=== PATIENT | female | born 1985 | race Caucasian/White ===

== ENCOUNTER 2018-01-13 19:40 | Day surgery (SDC) | payer OTHER ==
[~2018-01-13] VITALS: Ht 157.5 cm; Wt 82.9 kg
[2018-01-13 15:29] VITALS: BP 133/84
[2018-01-13 15:50] LABS: HCG UR SG 1.018 (1.003-1.030)
[~2018-01-13 19:40] MED LIST: ACETAMINOPHEN 325 MG TABLET PO PRN; ACETAMINOPHEN 650 MG/20.3 ML UDC ONE; DEXAMETHASONE 4 MG/ML, 5ML ONE; FENTANYL PF 100 MCG/2ML IV PRN; FENTANYL PF 100 MCG/2ML ONE; KETOROLAC 30 MG/1 ML IV PRN; LACTATED RINGERS 1,000 ML IV SCH; LIDOCAINE-MPF 1%, 2ML INFIL ONE; MEPERIDINE/PF 25MG/0.5ML IVPush PRN; MIDAZOLAM 1 MG/ML, 2ML IV PRN; MIDAZOLAM 1 MG/ML, 2ML ONE; NO HOME MEDS; ONDANSETRON 2MG/ML, 2ML IVPush PRN; ONDANSETRON 2MG/ML, 2ML ONE; ONDANSETRON ODT 4 MG PO PRN; OXYcodone/APAP 5/325MG TABLET PO PRN; PROPOFOL 10 MG/ML, 20ML ONE; morphine SULFATE 10 MG/ML, 1ML IV PRN
== END 2018-01-13 20:45 | disposition home or self-care (01) ==
LOC: OR 19:40 → 4NOR 19:45 → OR 20:45
PROVIDERS: ATTEND Obstetrics & Gynecology
DX: N87.9 Dysplasia of cervix uteri, unspecified (principal); Z88.1 Allergy status to other antibiotic agents
CPT/HCPCS: 57520; 81025; 88307; J2250; J3010; J3490; J7120; J1100; J2405; J2704

== ENCOUNTER 2018-01-19 18:14 | Emergency (ER) | payer OTHER ==
[~2018-01-19] VITALS: Ht 160 cm; Wt 85.1 kg
[~2018-01-19 18:14] MED LIST changes: -ACETAMINOPHEN 325 MG TABLET PO PRN; -ACETAMINOPHEN 650 MG/20.3 ML UDC ONE; -DEXAMETHASONE 4 MG/ML, 5ML ONE; -FENTANYL PF 100 MCG/2ML IV PRN; -FENTANYL PF 100 MCG/2ML ONE; -KETOROLAC 30 MG/1 ML IV PRN; -LACTATED RINGERS 1,000 ML IV SCH; -LIDOCAINE-MPF 1%, 2ML INFIL ONE; -MEPERIDINE/PF 25MG/0.5ML IVPush PRN; -MIDAZOLAM 1 MG/ML, 2ML IV PRN; -MIDAZOLAM 1 MG/ML, 2ML ONE; -ONDANSETRON 2MG/ML, 2ML IVPush PRN; -ONDANSETRON 2MG/ML, 2ML ONE; -ONDANSETRON ODT 4 MG PO PRN; -OXYcodone/APAP 5/325MG TABLET PO PRN; -PROPOFOL 10 MG/ML, 20ML ONE; -morphine SULFATE 10 MG/ML, 1ML IV PRN
[2018-01-19 18:50] LABS: BASOPHILS # (AUTO) 0.06 x10^3/uL (0-0.1); BASOPHILS % (AUTO) 1 % (0-1); EOSINOPHILS # (AUTO) 0.21 x10^3/uL (0-0.4); EOSINOPHILS % (AUTO) 2 % (1-7); LYMPHOCYTES # (AUTO) 3.75 x10^3/uL (1-3.4); LYMPHOCYTES % (AUTO) 42 % (22-44); MD NO; MEAN CORPUSCULAR HEMOGLOBIN 30.5 pg (27.0-34.8); MEAN CORPUSCULAR HGB CONC 33.8 g/dL (32.4-35.8); MEAN CORPUSCULAR VOLUME 90.3 fL (80-100); MEAN PLATELET VOLUME 7.9 fL (7.4-10.4); MONOCYTES # (AUTO) 0.61 x10^3/uL (0.2-0.8); MONOCYTES % (AUTO) 7 % (2-9); NEUTROPHILS # (AUTO) 4.25 x10^3/uL (1.8-6.8); NEUTROPHILS % (AUTO) 48 % (42-75); PLATELET COUNT 357 x10^3/uL (130-400); RED BLOOD COUNT 4.79 x10^6/uL (3.82-5.3); RED CELL DISTRIBUTION WIDTH 12.8 % (9.6-15.2)
[2018-01-19 19:03] LABS: ALBUMIN 3.6 g/dL (3.4-5.0); ANION GAP 8 mmol/L (5-15); CALCIUM 8.7 mg/dL (8.5-10.1); CHLORIDE 111 mmol/L (98-107); CREATININE 1.08 mg/dL (0.55-1.02)
[2018-01-19 20:58] VITALS: BP 125/64
== END 2018-01-19 21:11 | disposition home or self-care (01) ==
LOC: ED 21:00
DX: R10.9 Unspecified abdominal pain (principal)
CPT/HCPCS: 36415; 80048; 82040; 84703; 85025; 99284